=== PATIENT | female | born 1965 | race Two or more races ===

== ENCOUNTER 2023-03-17 14:44 | Emergency (ER) | payer MEDICARE, SELFPAY ==
[2023-03-17 14:52] VITALS: BP 171/66; PULSE 77; RESP 20; TEMP 36.9; O2SAT 96; BMI 34.2
--- NOTE | 2023-03-17 14:53 | XR_ITS ---
The [address] [address] Patient Name: SABRINA RAM MRN: [id number] date: 1965 Sex: F Assigned Patient Location: ER Current Patient Location: ER Accession/Order Number: [id number] Exam Date: 03/17/2023 15:34 Report Date: 03/17/2023 15:50 At the request of: ANA HODGE Procedure: XR chest 1V EXAMINATION: CHEST RADIOGRAPH (PORTABLE SINGLE VIEW AP) Exam Date/Time: 03/17/2023 3:34 PM EDT Clinical History: cough Comparison: None available RESULT: Lines, tubes, and devices: None. Lungs and pleura: No focal consolidation. No pneumothorax. No pleural effusion. Cardiomediastinal silhouette: Stable cardiomediastinal silhouette. No significant atherosclerotic calcification. Other: No acute osseous process. XR/XR chest 1V IMPRESSION: No acute cardiopulmonary abnormality. Electronically authenticated by: DIYA BEY Date: 03/17/2023 15:50
--- NOTE | 2023-03-17 14:53 | ED.URI1 ---
HPI - URI/Sore Throat General Chief Complaint: Upper Respiratory Infection Stated Complaint: COUGH Time Seen by Provider: 03/17/23 14:50 History of Present Illness HPI Narrative: 57-year-old female presents for cough which is nonproductive. She's had it for about five days. No known fever. Her throat hurts a little bit. No vomiting or diarrhea. No family members are ill. She has never been vaccinated for Covid. Symptoms are continuous. Related Data Previous Rx's Medication Instructions Recorded benzonatate 100 mg capsule 100 mg PO Q6H PRN cough #20 caps 03/17/23 Allergies Allergy/AdvReac Type Severity Reaction Status Date / Time Sulfa (Sulfonamide Allergy Severe Verified 03/17/23 14:50 Antibiotics) iv contrast Allergy Severe Uncoded 03/17/23 14:50 Review of Systems ROS Narrative A ten point review of systems is negative except as noted above. PFSH PFSH Social History Smoking status: Never smoker Exam Narrative Exam Narrative: Nurses note and vital signs reviewed and patient is not hypoxic. General: The patient appears well and in no apparent distress. Patient is resting comfortably on cart. Skin: Warm, dry, no pallor noted. There is no rash noted. Head: Normocephalic, atraumatic Eye: Normal conjunctiva, no drainage Ears, Nose, Mouth, and Throat: oral mucosa is moist. Nares patent. no pharyngeal erythema or exudate Cardiovascular: Regular Rate and Rhythm Respiratory: Patient is in no distress, no accessory muscle use, lungs are clear to auscultation, no wheezing, rales or rhonchi Back: non-tender GI: soft and nontender Musculoskeletal: The patient has no evidence of calf tenderness, no pitting edema, symmetrical pulses noted bilaterally Neurological: A&O, normal speech Psychiatric: Cooperative Constitutional Vital Signs, click to edit/add: Last Vital Signs Temp 98.4 F 03/17/23 14:52 Pulse 77 03/17/23 14:52 Resp 03/17/23 14:52 BP 171/66 H 03/17/23 14:52 Pulse Ox 96 03/17/23 14:52 Course Vital Signs Vital signs: Vital Signs Temperature 98.4 F 03/17/23 14:52 Pulse Rate 77 03/17/23 14:52 Respiratory Rate 03/17/23 14:52 Blood Pressure 171/66 H 03/17/23 14:52 Pulse Oximetry 96 03/17/23 14:52 Temperature 98.4 F 03/17/23 14:52 Pulse Rate 77 03/17/23 14:52 Respiratory Rate 20 03/17/23 14:52 Blood Pressure 171/66 H 03/17/23 14:52 Pulse Oximetry 96 03/17/23 14:52 MDM - URI/Sore Throat MDM Narrative Medical decision making narrative: chest x-ray and Covid test are negative. She'll be prescribed Tessalon and an antibiotic is not indicated. Treatment diagnosis and follow-up were discussed with the patient. Differential Diagnosis Differential diagnosis: Likely upper respiratory infection, viral infection and other (Covid, pneumonia) Lab Data Attestation: I reviewed the patient's lab results. Labs: Lab Results 03/17/23 Range/Units 15:05 SARS-CoV-2 (PCR) Negative (NEGATIVE) Imaging Data Chest x-ray: Radiologist's impression: Procedure: XR chest 1V EXAMINATION: CHEST RADIOGRAPH (PORTABLE SINGLE VIEW AP) Exam Date/Time: 03/17/2023 3:34 PM EDT Clinical History: cough Comparison: None available RESULT: Lines, tubes, and devices: None. Lungs and pleura: No focal consolidation. No pneumothorax. No pleural effusion. Cardiomediastinal silhouette: Stable cardiomediastinal silhouette. No significant atherosclerotic calcification. Other: No acute osseous process. IMPRESSION: No acute cardiopulmonary abnormality. Electronically authenticated by: DIYA BEY Date: 03/17/ Discharge Plan Discharge Chief Complaint: Upper Respiratory Infection Clinical Impression: Viral upper respiratory infection Patient Disposition: Home, Self-Care Time of Disposition Decision: 16:13 Condition: Good Mode of Transportation: Private Vehicle Prescriptions / Home Meds: New benzonatate 100 mg capsule 100 mg PO Q6H PRN (Reason: cough) Qty: 20 0RF Instructions: Upper Respiratory Infection (ED) Stand Alone Forms: Portal Instructions Referrals: Physician,Non-Staff, MD [Primary Care Provider] - 1 week
[2023-03-17 16:06] LABS: SARS-CoV-2 Ag NEGATIVE (NEGATIVE)
[2023-03-18 14:40] LABS: SARS-CoV-2 NAA NOT DETECTED (NOT DETECTE)
== END 2023-03-17 16:24 | disposition home or self-care (01) ==
PROVIDERS: Emergency Provider Emergency Medicine
DX: J06.9 Acute upper respiratory infection, unspecified (principal); Z28.310 Unvaccinated for COVID-19; Z20.822 Contact with and (suspected) exposure to COVID-19
CPT/HCPCS: 71045; 87635; 87811; 99284; U0003